=== PATIENT | male | born 1950 | race Caucasian/White ===

== ENCOUNTER 2019-05-20 13:13 | Emergency (ER) | payer MEDICARE, MEDICAID ==
[~2019-05-20] VITALS: Ht 182.9 cm; Wt 130.0 kg
[~2019-05-20 13:13] MED LIST: FURO-152 PO; GABA-529 PO; LOSA50TA41 PO; METO-539 PO; SIMV-43 PO
[2019-05-20 13:16] VITALS: BP 132/84
== END 2019-05-20 18:04 | disposition left against medical advice (07) ==
LOC: ER 13:32
DX: R07.9 Chest pain, unspecified (principal); Z53.21 Procedure and treatment not carried out due to patient leaving prior to being seen by health care provider

== ENCOUNTER 2019-05-20 20:52 | Emergency (ER) | payer MEDICARE, MEDICAID ==
[~2019-05-20] VITALS: Ht 182.9 cm; Wt 111.0 kg
[2019-05-20 21:17] VITALS: BP 126/88
[2019-05-20] MEDS ORDERED: ACETAMINOPHEN 325MG TABLET PO ONE (22:45)
== END 2019-05-21 00:15 | disposition left against medical advice (07) ==
LOC: ER 20:52
DX: R51 Headache (principal); M54.2 Cervicalgia; M25.512 Pain in left shoulder; R07.81 Pleurodynia; I10 Essential (primary) hypertension; R56.9 Unspecified convulsions; W01.0XXA Fall on same level from slipping, tripping and stumbling without subsequent striking against object, initial encounter; Y93.F1 Activity, caregiving, bathing; Y92.9 Unspecified place or not applicable
CPT/HCPCS: 71101; 73030; 99283

== ENCOUNTER 2023-04-17 16:50 | Emergency (ER) | payer MEDICARE, MEDICAID ==
[~2023-04-17] VITALS: Ht 172.7 cm; Wt 100.0 kg
[~2023-04-17 16:50] MED LIST changes: +ENOXAPARIN 30MG/0.3ML SYR SUBCUT SCH
[2023-04-17] MEDS ORDERED: ASPIRIN 325MG TABLET PO ONE (17:00)
[2023-04-17 17:01] VITALS: BP 122/84; PULSE 87; RESP 16; TEMP 98.4; O2SAT 96
[2023-04-17 17:20] LABS: BASOPHILS % 0.7 % (0.0-2.0); EOSINOPHILS % 3.5 % (0.0-5.0); HEMATOCRIT. 33.7 % (42.0-52.0); HEMOGLOBIN. 11.2 g/dL (14.0-18.0); LYMPHOCYTES % 18.5 % (20.0-50.0); MEAN CORPUSCULAR HEMOGLOBIN 29.4 pg (28.0-32.0); MEAN CORPUSCULAR HGB CONC 33.3 g/dL (31.0-37.0); MEAN CORPUSCULAR VOLUME 88.3 fL (80.0-94.0); MEAN PLATELET VOLUME 8.6 fl (7.4-10.4); MONOCYTES % 9.9 % (2.0-8.0); NEUTROPHILS % 67.4 % (40.0-76.0); PLATELET 206 x1000/uL (130-400); RED BLOOD CELL COUNT 3.82 mill/uL (4.7-6.1); RED CELL DISTRIBUTION WIDTH 16.6 % (11.6-14.6); WHITE BLOOD COUNT 9.7 x1000/uL (4.5-11.0)
[2023-04-17 17:31] LABS: ALANINE AMINOTRANSFERASE 21 IU/L (10-49); ALBUMIN 3.1 g/dL (3.2-4.8); ASPARTATE AMINOTRANSFERASE 20 IU/L (<34); BILIRUBIN TOTAL 0.4 mg/dL (0.1-1.0); CALCIUM 7.9 mg/dL (8.7-10.4); CARBON DIOXIDE 30 mEq/L (21-32); CHLORIDE 105 mEq/L (98-107); CREATININE 0.8 mg/dL (0.6-1.3); GLUCOSE 121 mg/dL (70-105); POTASSIUM 3.2 mEq/L (3.5-5.1); PROTEIN TOTAL 6.5 g/dL (6.0-8.3); SODIUM 139 mEq/L (136-145); TROPONIN I HIGH SENSITIVITY 5 ng/L (3.0-53); UREA NITROGEN BLOOD 12 mg/dL (9-23)
[2023-04-17] MEDS ORDERED: POTASSIUM CHLORIDE 20MEQ/PACKET PO ONE (18:15)
[2023-04-17] MEDS ORDERED: ONDANSETRON HCL 4MG/2ML INJ IV PRN (21:00)
[2023-04-17] MEDS ORDERED: AMLODIPINE 2.5MG TABLET PO SCH (21:00)
[2023-04-17] MEDS ORDERED: ATORVASTATIN CALCIUM 40MG TABLET PO SCH (21:00)
[2023-04-17] MEDS ORDERED: ZOLPIDEM TARTRATE 5MG TABLET PO PRN (21:00)
[2023-04-17] MEDS ORDERED: CLONIDINE 0.1MG TABLET PO PRN (21:00)
[2023-04-17] MEDS ORDERED: POTASSIUM CHLORIDE 20MEQ TABLET SR PO NR (21:00)
[2023-04-17] MEDS ORDERED: DIPHENHYDRAMINE 50MG/ML VIAL IV PRN (21:00)
[2023-04-17] MEDS ORDERED: ACETAMINOPHEN 325MG TABLET PO PRN ×2 (21:00)
[2023-04-17] MEDS ORDERED: MAGNESIUM/ALUMINUM HYDROXIDE/SIMETHICONE 30ML UDC PO PRN (21:00)
[2023-04-17] MEDS ORDERED: NAPROXEN 375MG TABLET PO PRN (21:00)
[2023-04-17] MEDS ORDERED: SODIUM CHLORIDE 0.9% INJ 3ML FLUSH IVF SCH (22:00)
[2023-04-17] MEDS ORDERED: ASPIRIN 325MG TABLET PO NR (22:30)
[2023-04-18] MEDS ORDERED: ARIPIPRAZOLE 2MG TABLET PO SCH (09:00)
== END 2023-04-17 22:20 | disposition left against medical advice (07) ==
LOC: ER 16:50 → UNDOADMIN 18:26 → MICUSO 18:26 → EDBEDREQ 18:33 → ER 22:20
DX: R07.9 Chest pain, unspecified (principal); E78.00 Pure hypercholesterolemia, unspecified; I11.0 Hypertensive heart disease with heart failure; I50.9 Heart failure, unspecified
CPT/HCPCS: 36415; 71045; 80053; 84484; 85025; 93005; 93970; 99285

== ENCOUNTER 2023-04-23 19:48 | Emergency (ER) | payer MEDICARE, MEDICAID ==
[~2023-04-23] VITALS: Ht 177.8 cm; Wt 100.0 kg
[~2023-04-23 19:48] MED LIST changes: -ENOXAPARIN 30MG/0.3ML SYR SUBCUT SCH
[2023-04-23 19:55] VITALS: O2SAT 99
[2023-04-23] MEDS ORDERED: ASPIRIN 325MG EC TABLET PO ONE (22:15)
[2023-04-23 22:58] LABS: BASOPHILS % 0.7 % (0.0-2.0); HEMATOCRIT. 33.2 % (42.0-52.0); HEMOGLOBIN. 10.9 g/dL (14.0-18.0); LYMPHOCYTES % 17.8 % (20.0-50.0); MEAN CORPUSCULAR HEMOGLOBIN 29.2 pg (28.0-32.0); MEAN CORPUSCULAR HGB CONC 32.9 g/dL (31.0-37.0); MEAN CORPUSCULAR VOLUME 88.5 fL (80.0-94.0); MEAN PLATELET VOLUME 8.6 fl (7.4-10.4); MONOCYTES % 9.5 % (2.0-8.0); PLATELET 202 x1000/uL (130-400); RED BLOOD CELL COUNT 3.75 mill/uL (4.7-6.1); RED CELL DISTRIBUTION WIDTH 16.5 % (11.6-14.6); WHITE BLOOD COUNT 7.1 x1000/uL (4.5-11.0)
[2023-04-23 23:17] LABS: ALANINE AMINOTRANSFERASE 20 IU/L (10-49); ALBUMIN 3.4 g/dL (3.2-4.8); ASPARTATE AMINOTRANSFERASE 22 IU/L (<34); BILIRUBIN TOTAL 0.7 mg/dL (0.1-1.0); CALCIUM 8.1 mg/dL (8.7-10.4); CARBON DIOXIDE 25 mEq/L (21-32); CHLORIDE 106 mEq/L (98-107); CREATININE 0.8 mg/dL (0.6-1.3); GLUCOSE 97 mg/dL (70-105); POTASSIUM 4.3 mEq/L (3.5-5.1); PROTEIN TOTAL 6.8 g/dL (6.0-8.3); SODIUM 138 mEq/L (136-145); TROPONIN I HIGH SENSITIVITY 6 ng/L (3.0-53); UREA NITROGEN BLOOD 10 mg/dL (9-23)
[2023-04-24 01:49] LABS: TROPONIN I HIGH SENSITIVITY 5 ng/L (3.0-53)
[2023-04-24 02:53] VITALS: BP 135/71; PULSE 78; RESP 18; TEMP 98.3
== END 2023-04-24 03:37 | disposition home or self-care (01) ==
LOC: ER 19:48
DX: I20.89 Other forms of angina pectoris (principal); I50.9 Heart failure, unspecified; F17.200 Nicotine dependence, unspecified, uncomplicated
CPT/HCPCS: 36415; 71045; 80053; 83880; 84484; 85025; 93005; 99285

== ENCOUNTER 2023-12-03 13:48 | Emergency (ER) | payer MEDICAID, MEDICARE, OTHER ==
[~2023-12-03] VITALS: Ht 167.6 cm; Wt 100.0 kg
[2023-12-03 13:54] VITALS: O2SAT 97
[2023-12-03 14:43] LABS: CHLORIDE 102 mEq/L (98-107); POTASSIUM 4.2 mEq/L (3.5-5.1); SODIUM 136 mEq/L (136-145)
[2023-12-03 14:44] LABS: BASOPHILS % 1.2 % (0.0-2.0); CARBON DIOXIDE 29 mEq/L (21-32); EOSINOPHILS % 5.7 % (0.0-5.0); HEMATOCRIT. 43.1 % (42.0-52.0); HEMOGLOBIN. 14.1 g/dL (14.0-18.0); LYMPHOCYTES % 35.4 % (20.0-50.0); MEAN CORPUSCULAR HEMOGLOBIN 28.5 pg (28.0-32.0); MEAN CORPUSCULAR HGB CONC 32.8 g/dL (31.0-37.0); MEAN CORPUSCULAR VOLUME 86.8 fL (80.0-94.0); MEAN PLATELET VOLUME 9.2 fl (7.4-10.4); MONOCYTES % 11.7 % (2.0-8.0); PLATELET 173 x1000/uL (130-400); RED BLOOD CELL COUNT 4.96 mill/uL (4.7-6.1); RED CELL DISTRIBUTION WIDTH 16.3 % (11.6-14.6); WHITE BLOOD COUNT 5.7 x1000/uL (4.5-11.0)
[2023-12-03 14:45] LABS: CALCIUM 8.7 mg/dL (8.7-10.4)
[2023-12-03 14:49] LABS: CREATININE 0.8 mg/dL (0.6-1.3); GLUCOSE 96 mg/dL (70-105); UREA NITROGEN BLOOD 14 mg/dL (9-23)
[2023-12-03 14:51] LABS: TROPONIN I HIGH SENSITIVITY 4 ng/L (3.0-53)
[2023-12-03 15:00] LABS: PARTIAL THROMBOPLASTIN TIME 27.2 sec (23.4-31.0); PROTHROMBIN TIME 11.3 sec (9.6-11.0)
[2023-12-03] MEDS: ASPIRIN 81MG TABLET PO ONE (15:26)
[2023-12-03] MEDS: NITROGLYCERIN 0.4MG TABLET SL SL ONE (16:09)
[2023-12-03 16:53] LABS: TROPONIN I HIGH SENSITIVITY 4 ng/L (3.0-53)
[2023-12-03 18:34] VITALS: BP 145/82; PULSE 64; RESP 16; TEMP 98.1
== END 2023-12-03 18:39 ==
LOC: ER 13:48
DX: R07.89 Other chest pain (principal); I11.0 Hypertensive heart disease with heart failure; I50.9 Heart failure, unspecified; I25.2 Old myocardial infarction; Z87.891 Personal history of nicotine dependence; Z79.899 Other long term (current) drug therapy
CPT/HCPCS: 80048; 83880; 85025; 85610; 85730; 84484; 36415; 71045; 93005; 99285; Z7610 ×4